=== PATIENT | male | born 1990 | race Caucasian/White ===

== ENCOUNTER 2020-12-11 07:47 | Emergency (ER) | payer OTHER | END 2020-12-11 10:53 | disposition home or self-care (01) | LOC: FER 07:47 | DX: S62.300A Unspecified fracture of second metacarpal bone, right hand, initial encounter for closed fracture (principal); F17.290 Nicotine dependence, other tobacco product, uncomplicated; W22.8XXA Striking against or struck by other objects, initial encounter; Y92.830 Public park as the place of occurrence of the external cause | CPT/HCPCS: 73130 ==